=== PATIENT | female | born 1995 | race Caucasian/White ===

== ENCOUNTER 2017-09-05 00:57 | Outpatient (CLI) | payer OTHER ==
[2017-09-05] MEDS ORDERED: SYNTHROID112 MCG PO (02:09)
[2017-09-05] MEDS ORDERED: PRENATAL TABLE1 EAC3 PO (02:10)
[2017-09-05 02:16] LABS: APPEARANCE CLOUDY ((CLEAR)); BILIRUBIN NEGATIVE; BLOOD MODERATE; COLOR YELLOW ((YELLOW)); GLUCOSE (STRIP) NEGATIVE; KETONES NEGATIVE; LEUKOCYTES LARGE; NITRITE NEGATIVE; PROTEIN (STRIP) NEGATIVE; UROBILINOGEN 0.2 MG/DL (0.2-1.0)
[2017-09-05 02:28] LABS: BACTERIA 1+ /HPF; EPITHELIAL CELLS RARE /HPF; MUCUS NONE SEEN /LPF; RED BLOOD CELLS 0-5 /HPF (0-5); UCUL ADDED? NO; WHITE BLOOD CELLS 0-5 /HPF (0-5)
[2017-09-05 02:33] LABS: AMPHETAMINE NEGATIVE (500 ng/mL); BARBITURATES NEGATIVE (200 ng/mL); BENZODIAZEPINES NEGATIVE (150 ng/mL); BUPRENORPHINE NEGATIVE (10 ng/mL); COCAINE NEGATIVE (150 ng/mL); METHADONE NEGATIVE (200 ng/mL); METHAMPHETAMINE NEGATIVE (500 ng/mL); OPIATES (MORPHINE) NEGATIVE (100 ng/mL); OXYCODONE NEGATIVE (100 ng/mL); PHENCYCLIDINE NEGATIVE (25 ng/mL); PROPOXYPHENE NEGATIVE (300 ng/mL); THC CANNABINOIDS NEGATIVE (50 ng/mL); TRICYCLIC ANTIDEPRESSANTS NEGATIVE (300 ng/mL)
== END 2017-09-05 03:30 | disposition home or self-care (01) ==
LOC: LDRP-OP 00:57 → 2WEST 00:58
PROVIDERS: Nurse Practitioner
DX: O21.9 Vomiting of pregnancy, unspecified (principal); Z3A.35 35 weeks gestation of pregnancy
CPT/HCPCS: 59025; 81003; G0378

== ENCOUNTER 2017-10-30 22:52 | Emergency (ER) | payer OTHER ==
[~2017-10-30] VITALS: Ht 154.9 cm; Wt 57.2 kg
[~2017-10-30 22:52] MED LIST: PRENATAL TABLE1 EAC3 PO; SYNTHROID112 MCG PO
[2017-10-30 23:08] LABS: HEMATOCRIT 38.9 % (36.0-46.0); HEMOGLOBIN 12.6 G/DL (11.9-15.5); MCH 28.1 PG (29.0-34.0); MCHC 32.4 G/DL (30.0-36.0); MCV 86.8 FL (83-99); PLATELET COUNT 270 K/uL (156-360); RBC DIS.WIDTH-CV 13.8 % (11.8-14.6); RBC DIS.WIDTH-SD 44.5 % (39-53); RED BLOOD COUNT 4.48 M/uL (3.80-5.20); WHITE BLOOD COUNT 6.4 K/uL (4.1-10.2)
[2017-10-30 23:17] LABS: ALBUMIN 4.3 g/dL (3.2-4.8); CHLORIDE 106 mEq/L (99-109); POTASSIUM 3.6 mEq/L (3.7-5.4); SODIUM 142 mEq/L (136-147)
[2017-10-30 23:20] LABS: GLUCOSE 113 mg/dL (70-99); TOTAL PROTEIN 7.2 g/dL (6.4-8.3)
[2017-10-30 23:22] LABS: TOTAL BILIRUBIN 0.3 mg/dL (0.0-1.0)
[2017-10-30 23:23] LABS: ALKALINE PHOSPHATASE 87 IU/L (3-129); CREATININE 0.8 mg/dL (0.6-1.3); GFR ESTIMATE (CALCULATED) > 59 mL/min/
[2017-10-30 23:24] LABS: UREA NITROGEN (BUN) 12 mg/dL (9-23)
[2017-10-30 23:25] LABS: APPEARANCE CLOUDY ((CLEAR)); BILIRUBIN NEGATIVE; BLOOD LARGE; COLOR YELLOW ((YELLOW)); GLUCOSE (STRIP) NEGATIVE; KETONES NEGATIVE; LEUKOCYTES LARGE; NITRITE NEGATIVE; PROTEIN (STRIP) 30; UROBILINOGEN 0.2 MG/DL (0.2-1.0)
[2017-10-30 23:25] LABS: AST (GOT) 14 IU/L (2-34)
[2017-10-30 23:26] LABS: ALT (GPT) 14 IU/L (3-49)
[2017-10-30 23:33] LABS: QUANTITATIVE HCG < 4.0 MIU/ML
[2017-10-30 23:41] LABS: BACTERIA 1+ /HPF; EPITHELIAL CELLS 2+ /HPF; MUCUS NONE SEEN /LPF; RED BLOOD CELLS 20-30 /HPF (0-5); UCUL ADDED? YES; WHITE BLOOD CELLS TNTC /HPF (0-5)
[2017-10-31 02:00] VITALS: BP 128/83
[2017-10-31] MEDS ORDERED: ZOFRAN ODT8 MG PO (02:05)
[2017-10-31] MEDS ORDERED: MOTRIN800 MG PO (02:05)
[2017-10-31] MEDS ORDERED: BENTYL20 MG PO (02:05)
[2017-10-31] MEDS ORDERED: NORCO 7.5/321 TABLET PO (02:05)
[2017-10-31] MEDS ORDERED: KEFLEX500 MG PO (02:06)
== END 2017-10-31 02:00 | disposition home or self-care (01) ==
LOC: EME 22:52
DX: N13.2 Hydronephrosis with renal and ureteral calculous obstruction (principal); N30.00 Acute cystitis without hematuria; K52.9 Noninfective gastroenteritis and colitis, unspecified; Z87.440 Personal history of urinary (tract) infections
CPT/HCPCS: 74176; 80053; 81003; 84702; 85027; 87086; 99281; 99284; J0696; J1885